=== PATIENT | male | born 1980 | race Caucasian/White ===

== ENCOUNTER 2018-03-21 16:01 | Emergency (ER) | payer OTHER ==
[2018-03-21] MEDS: IBUPROFEN 800 MG TAB PO (18:05)
[2018-03-21] MEDS: LIDOCAINE 1% (MDV) 10 ML INJ INJ (18:28)
== END 2018-03-21 18:37 | disposition home or self-care (01) ==
LOC: FTE 16:01
DX: L02.414 Cutaneous abscess of left upper limb (principal); F17.210 Nicotine dependence, cigarettes, uncomplicated
CPT/HCPCS: 10060; 99284-25

== ENCOUNTER 2018-03-31 05:43 | Emergency (ER) | payer OTHER | END 2018-03-31 06:46 | disposition home or self-care (01) | LOC: FTE 05:43 | DX: S05.02XA Injury of conjunctiva and corneal abrasion without foreign body, left eye, initial encounter (principal); X58.XXXA Exposure to other specified factors, initial encounter; Y92.9 Unspecified place or not applicable; Z87.891 Personal history of nicotine dependence | CPT/HCPCS: 99283; Z7502 ==

== ENCOUNTER → 2019-02-14 | Emergency (ER) | payer OTHER ==
[2019-02-14] MEDS: TETRACAINE 0.5% 4 ML OPH RIGHT EYE (12:52)
== END | disposition home or self-care (01) ==
LOC: FTE 11:28
DX: T15.01XA Foreign body in cornea, right eye, initial encounter (principal); F17.210 Nicotine dependence, cigarettes, uncomplicated; X58.XXXA Exposure to other specified factors, initial encounter; Y92.9 Unspecified place or not applicable
CPT/HCPCS: 65220; 99283-25